=== PATIENT | female | born 2000 | race Caucasian/White ===

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

== ENCOUNTER 2019-05-22 11:06 | Emergency (ER) | payer MEDICAID ==
[~2019-05-22] VITALS: Ht 154.9 cm; Wt 84.4 kg
[2019-05-22 11:33] VITALS: Ht 154.9 cm; Wt 84.4 kg
[2019-05-22 11:56] LABS: BASOPHIL % 0.3 % (0-2); RED CELL DISTRIBUTION WIDTH 13.4 % (11.5-14.5)
[2019-05-22 11:58] LABS: PLATELET COUNT 451 x10^3mcL (130-400)
[2019-05-22 12:06] LABS: CALCIUM 9.3 mg/dL (8.5-10.1); CARBON DIOXIDE 24.5 mmol/L (21-32); CHLORIDE SERUM 106 mmol/L (98-107); CREATININE SERUM 1.1 mg/dL (0.6-1.0); GFR1 > 60 mL/min; GLUCOSE SERUM 139 mg/dL (74-106); POTASSIUM SERUM 4.1 mmol/L (3.5-5.1); SODIUM SERUM 142 mmol/L (136-145)
[2019-05-22 12:11] LABS: ALKALINE PHOSPHATASE 87 U/L (46-116); ALT/SGPT 39 U/L (14-59); AST/SGOT 13 U/L (15-37); BILIRUBIN TOTAL 0.7 mg/dL (0.20-1.00)
[2019-05-22 12:12] LABS: TOTAL PROTEIN, SERUM 8.7 g/dL (6.4-8.2)
[2019-05-22 16:13] VITALS: BP 109/69
== END 2019-05-22 16:13 | disposition home or self-care (01) ==
LOC: ED 11:06
DX: N20.0 Calculus of kidney (principal); R10.31 Right lower quadrant pain; R11.2 Nausea with vomiting, unspecified; N93.9 Abnormal uterine and vaginal bleeding, unspecified
CPT/HCPCS: 87491; 87591; J1885; J2405; J7030